=== PATIENT | male | born 1970 | race Caucasian/White ===

== ENCOUNTER 2019-02-10 | Day surgery (SDC) | payer OTHER | END 2019-02-10 09:31 | disposition home or self-care (01) | PROC: 0DJD8ZZ Inspection of Lower Intestinal Tract, Via Natural or Artificial Opening Endoscopic (ICD-10-PCS; principal; 2019-02-10) | DX: Z12.11 Encounter for screening for malignant neoplasm of colon (principal); K64.8 Other hemorrhoids; E66.9 Obesity, unspecified; Z68.35 Body mass index [BMI] 35.0-35.9, adult; Z79.82 Long term (current) use of aspirin | CPT/HCPCS: 45378; J3010; J7120 ==

== ENCOUNTER 2021-11-05 13:48 | Outpatient (CLI) | payer OTHER ==
--- NOTE | 2021-11-05 16:35 | XRAY Report ---
PROCEDURE: Knee 2 View LT INDICATIONS: INTERNAL DERANGEMENT OF L KNEE TECHNIQUE: 2 views of the left knee(s) were acquired. COMPARISON: None. FINDINGS: Moderate osteoarthritic changes with findings of chondrocalcinosis in all 3 compartments of the knee. No fracture or dislocation. Small knee joint effusion. IMPRESSION: Moderate tricompartmental osteophytes and chondrocalcinosis. Reviewed by: Medardo Manley MD on 11/05/2021 4:34 PM PDT Approved by: Medardo Manley MD on 11/05/2021 4:34 PM PDT Station ID: [id number]
== END 2021-11-05 23:59 | disposition home or self-care (01) ==
LOC: DI.N 13:48
PROVIDERS: ATTEND Family Medicine
DX: M23.92 Unspecified internal derangement of left knee (principal); S83.92XA Sprain of unspecified site of left knee, initial encounter; M17.12 Unilateral primary osteoarthritis, left knee; M11.262 Other chondrocalcinosis, left knee

== ENCOUNTER 2021-11-11 08:00 | Outpatient (CLI) | payer OTHER | END 2021-11-11 08:01 | disposition home or self-care (01) | LOC: LAB.N 08:00 | PROVIDERS: ATTEND Physician Assistant Medical | DX: R19.7 Diarrhea, unspecified (principal) | CPT/HCPCS: 87045; 87046; 87427; 87493 ==